=== PATIENT | female | born 1965 | race Caucasian/White ===

== ENCOUNTER 2021-03-02 15:24 | Emergency (ER) | payer OTHER, SELFPAY ==
--- NOTE | 2021-03-02 15:37 | ED.SKABFB ---
HPI - Skin/Abscess/Foreign Bdy General Chief complaint: Skin/Abscess/Foreign Body Stated complaint: tick bite Time Seen by Provider: 03/02/21 15:37 Source: patient and RN notes reviewed Mode of arrival: ambulatory Limitations: no limitations History of Present Illness HPI narrative: 55-year-old female presents with concern for tick bite. Reports 2 weeks ago she had a tick pulled off of her back. Reports a painful red area on her back since that time. Reports 5 other bumps on her body that are painful, reports one area on her shoulder became large and drained fluid recently. Reports fatigue, malaise. Reports she has been using Benadryl cream with no relief. She denies swollen tongue, swollen lips, fever. MD complaint: insect bite/sting Related Data Allergies Allergy/AdvReac Type Severity Reaction Status Date / Time diazepam Allergy Unknown Hives / Verified 03/02/21 15:48 Red Face morphine AdvReac Mild NAUSEA/VOMI Verified 03/02/21 15:48 TING NA Allergy Unknown Uncoded 03/02/21 15:48 NKA Allergy Unknown Uncoded 03/02/21 15:48 Review of Systems Review of Systems: Narrative: CONSTITUTIONAL: Reports malaise, fatigue. Denies chills, sweats, or fever. EYES: Denies visual changes, redness, or discharge. ENT: Denies rhinorrhea, congestion, sinus pain, otalgia or sore throat. CARDIOVASCULAR: Denies chest pain, palpitations, or edema. RESPIRATORY: Denies cough or dyspnea. GASTROINTESTINAL: Denies abdominal pain, nausea, vomiting, diarrhea SKIN: Reports tick bite on her back, reports 5 painful bumps scattered on her arms and torso MUSCULOSKELETAL: Denies back pain, joint pain, or myalgia. NEUROLOGIC: Denies numbness, weakness, or headache. PSYCHIATRIC: Denies anxiety or depression. All systems reviewed & are unremarkable except as noted in HPI and below PMFSH Social History Social History Gender identity (if verbalized by the patient): Female Comments At time of signature, agree with nursing past medical, surgical, social and family history. There is no relevant family history pertinent to the presenting complaint Exam Narrative: Exam Narrative: GENERAL: Well-appearing, well-nourished, and in no acute distress. HEAD: Normocephalic, atraumatic. EYES: PERRLA, conjunctivae clear ENT: Mucous membranes moist. Oropharynx without edema, erythema or lesions. NECK: Supple. No lymphadenopathy CHEST: Clear to auscultation. No respiratory distress. HEART: Regular rate and rhythm. SKIN: Warm, dry. 1cm area of raised erythema with central blister noted to the right upper back. 5 scattered papules with scabs, slightly erythematous noted scattered to the arms and torso NEURO: Alert and oriented x3. PSYCH: Normal mood and affect Course Course Emergency Course: Patient is aware of diagnosis, understands and agrees to treatment plan. Anticipatory guidance given. Patient agrees to follow-up as directed and is aware of reasons to seek care at the emergency department. Portions of this record may have been created with voice recognition software Vital Signs Vital signs: Vital Signs Temperature 98.4 F 03/02/21 15:39 Pulse Rate 72 03/02/21 15:39 Respiratory Rate 16 03/02/21 15:39 Blood Pressure 145/81 H 03/02/21 15:39 Pulse Oximetry 98 03/02/21 15:39 Temperature 98.4 F 03/02/21 15:39 Pulse Rate 72 03/02/21 15:39 Respiratory Rate 16 03/02/21 15:39 Blood Pressure 145/81 H 03/02/21 15:39 Pulse Oximetry 98 03/02/21 15:39 Reviewed. MDM - Skin/Abscess/Foreign Bdy MDM Narrative Medical decision making narrative: Does not appear at this time to be erythema multiforme, bullous, SJS, TEN; no evidence at this time to suggest RMSF, endocarditis or Lyme disease; patient looks well, nontoxic and is tolerating oral intake; no neurologic signs or symptoms; no headache, photophobia or neck pain; afebrile; appropriate for initial outpatient treatment; discussed the importance of follow-up, patient agrees; qu
[2021-03-02 15:39] VITALS: BP 145/81; PULSE 72; RESP 16; TEMP 36.9; O2SAT 98
== END 2021-03-02 16:08 | disposition home or self-care (01) ==
PROVIDERS: Emergency Provider Nurse Practitioner
DX: S20.461A Insect bite (nonvenomous) of right back wall of thorax, initial encounter (principal); W57.XXXA Bitten or stung by nonvenomous insect and other nonvenomous arthropods, initial encounter; Z85.3 Personal history of malignant neoplasm of breast; Z90.13 Acquired absence of bilateral breasts and nipples
CPT/HCPCS: 99213; G0463

== ENCOUNTER 2021-06-15 16:34 | Emergency (ER) | payer OTHER, SELFPAY ==
[2021-06-15 16:54] VITALS: BP 129/88; PULSE 91; RESP 18; TEMP 37.6; O2SAT 100
--- NOTE | 2021-06-15 17:08 | ED.ABDPAIN ---
HPI - Abdominal Pain General Chief Complaint: Abdominal Pain Stated Complaint: Right side Pain History of Present Illness HPI narrative: This is a 56-year-old female comes in complaining of right lower quadrant pain. Patient states that she has been having this pain for approximately 2 to 3 weeks pain is increasingly gotten severe she is vomited on Monday. Patient states that she has been having low-grade that she did not realize at first Related Data Home Medications Medication Instructions Recorded Confirmed No Home Medications 06/15/21 06/15/21 Allergies Allergy/AdvReac Type Severity Reaction Status Date / Time diazepam Allergy Unknown Hives / Verified 06/15/21 18:36 Red Face morphine AdvReac Mild NAUSEA/VOMI Verified 06/15/21 18:36 TING Review of Systems Review of Systems: CONSTITUTIONAL: Denies fever, chills, or sweats. EYES: Denies visual changes, redness, or discharge. ENT: Denies rhinorrhea, congestion, sore throat, or otalgia. CARDIOVASCULAR:denies chest pain, palpitations, or edema. RESPIRATORY: Denies cough or dyspnea. GASTROINTESTINAL: reports right sided abdominal pain, denies nausea, vomiting, or diarrhea. GENITOURINARY: Denies dysuria or hematuria. SKIN:[Denies rash or itching. MUSCULOSKELETAL:Denies back pain, joint pain, or myalgia. NEUROLOGIC: Denies headache, numbness, or weakness. PSYCHIATRIC:Denies anxiety or depression PMFSH Surgical History Surgical History (Updated 06/15/21 @ 19:33 by Caryn Quintana PA-C) History of hysterectomy History of mastectomy Social History Social History Gender identity (if verbalized by the patient): Female Comments At time as signature, I have reviewed and agree with nursing past medical, social, surgical and family history. Please see nursing chart for further information. There is no relevant family history pertinent to the presenting complaint. Exam Narrative: GENERAL:Well-appearing, well-nourished, and in no acute distress. HEAD:Normocephalic, atraumatic. EYES: PERRLA and EOMI. ENT: Nares clear, no rhinorrhea or epistaxis. Mucous membranes moist. NECK: Supple. CHEST: Clear to auscultation. No respiratory distress. HEART: Regular rate and rhythm. No murmur heard. Normal peripheral pulses. ABDOMEN: Soft, right sided tender, nondistended, no cv tenderness normal active bowel sounds. EXTREMITIES: Normal range of motion. No edema. SKIN: Warm, dry, no rash. NEURO: No focal deficits. Alert and oriented x3. Course Vital Signs Vital signs: Vital Signs Temperature 99.6 F 06/15/21 16:54 Pulse Rate 91 06/15/21 16:54 Respiratory Rate 18 06/15/21 16:54 Blood Pressure 129/88 06/15/21 16:54 Pulse Oximetry 100 06/15/21 16:54 Temperature 99.6 F 06/15/21 16:54 Pulse Rate 91 06/15/21 16:54 Respiratory Rate 18 06/15/21 16:54 Blood Pressure 129/88 06/15/21 16:54 Pulse Oximetry 100 06/15/21 16:54 Transfer Transfered to: [facility] Accepting physician: Dr. Simmons unable to do any further testing MDM - Abdominal Pain Lab Data Labs: Urine Glucose Negative Reference Range: Negative Urine Bilirubin Negative Reference Range: Negative Urine Ketone Negative Reference Range: Negative Urine Specific [place] 1.020 Reference Range:1.001-1.035 Urine Blood Negative Reference Range: Negative * * Urine pH 5.5 Reference Range: 5.0-9.0 Urine Protein Negative Reference Range: Negative Urine Urobilin
== END 2021-06-15 17:48 | disposition short-term general hospital (02) ==
LOC: EXPCOLL 16:37
PROVIDERS: Emergency Provider Nurse Practitioner Family
DX: R10.31 Right lower quadrant pain (principal); Z85.3 Personal history of malignant neoplasm of breast; Z90.13 Acquired absence of bilateral breasts and nipples
CPT/HCPCS: 81003; 99212; G0463

== ENCOUNTER 2021-06-15 18:04 | Emergency (ER) | payer OTHER, SELFPAY ==
[2021-06-15] VITALS (17 sets, daily range): BP systolic 132–157; BP diastolic 86–93; PULSE 68–78; RESP 16; O2SAT 95–100
--- NOTE | ~2021-06-15 | CT_ITS ---
EXAMINATION: CT abdomen pelvis w con DATE: 06/15/2021 20:30 INDICATION: Right lower quadrant abdominal pain. TECHNIQUE: Computed tomography (CT) of the abdomen and pelvis was performed with 100 mL Omnipaque 350 intravenous contrast. Automated exposure control and iterative reconstruction technique were employe d. The dose-length product was 238.73 mGy-cm. COMPARISON: CT abdomen and pelvis 07/12/2013 FINDINGS: The visualized portions of the lung bases are clear without pneumonia or pleural effusion. The heart size is normal. No pericardial effusion. There are bilateral breast implants. The liver, ga llbladder, spleen, pancreas, and adrenal glands are normal. There is cortical thinning of the kidneys . There are no dilated loops of bowel. The appendix is normal. There are no pathologically enlarged l ymph nodes. There is no free intraperitoneal fluid. There is mild lumbar spondylosis. IMPRESSION: 1. Mild atrophy of the kidneys. Reviewed, dictated and finalized at location A.
[2021-06-15 18:37] LABS: Basophils Percent Auto 0.5 % (0.2-1.2); Eosinophils Absolute Auto 0.2 K/mm3 (0-0.3); Eosinophils Percent Auto 2.2 % (0-4.4); Hematocrit 42.1 % (37.0-47.0); Immature Granulocyte Absolute 0.02 K/mm3 (0.00-0.031); Immature Granulocyte Percent A 0.2 % (0-0.5); Lymphocytes Absolute Auto 3.18 K/mm3 (0.9-3.2); Mean Corpuscular HGB Conc 33.3 g/dl (32-36); Mean Corpuscular Volume 87.2 fl (80-100); Monocytes Absolute Auto 0.7 K/mm3 (0.1-0.6); Monocytes Percent Auto 8.5 % (2.6-8.5); Neutrophils Absolute Auto 4.2 K/mm3 (1.3-6.7); Neutrophils Percent Auto 50.6 % (45.5-73.1); Platelet Count Result 340 k/mm3 (150-375); Red Blood Count 4.83 M/mm3 (4.2-5.4); Red Cell Distribution Width 13.2 % (11.5-14.5); White Blood Count 8.4 K/mm3 (4.5-10.0)
[2021-06-15 18:47] LABS: Alanine Aminotransferase 24 U/L (4-35); Albumin Level 4.3 g/dL (3.5-5.1); Alkaline Phosphatase 66 U/L (38-126); Anion Gap 10 mmol/L (8-16); Aspartate Amino Transferase 33 U/L (14-36); Bilirubin,Total 0.4 mg/dL (0.2-1.3); Blood Urea Nitrogen 24 mg/dL (7-17); Calcium 9.5 mg/dL (8.4-10.2); Carbon Dioxide 27 mmol/L (22-30); Chloride 101 mmol/L (98-107); Estimated CRCL calculation 39 ml/min; Estimated Glomerular Filt Rate 51; Glucose 81 mg/dL (65-110); Lipase 233 U/L (23-300); Potassium 3.9 mmol/L (3.4-5.0); Sodium 138 mmol/L (137-145)
--- NOTE | 2021-06-15 19:31 | ED.ABDPAIN ---
HPI - Abdominal Pain General Chief Complaint: Abdominal Pain <ANNALISA Bernstein Last Filed: 06/15/21 21:07> Stated Complaint: RLQ Abd pain <ANNALISA Bernstein Last Filed: 06/15/21 21:07> Time Seen by Provider: 06/15/21 18:44 <ANNALISA Bernstein Last Filed: 06/15/21 21:07> Source: patient <ANNALISA Bernstein Last Filed: 06/15/21 21:07> Mode of arrival: ambulatory <ANNALISA Bernstein Last Filed: 06/15/21 21:07> Limitations: no limitations <ANNALISA Bernstein Last Filed: 06/15/21 21:07> History of Present Illness HPI narrative: This is a 56 year old female that presents to the ER for RLQ abdominal pain x 2 weeks. Reports the pain was intermittent in nature. It is sharp. The pain today has been more constant which prompted her to be seen. Does report intermittent nausea and vomiting. Also reports episodes of diarrhea. Denies fever. <ANNALISA Bernstein Last Filed: 06/15/21 21:07> Related Data Home Medications: Home Medications Medication Instructions Recorded Confirmed No Home Medications 06/15/21 08 <ANNALISA Bernstein Last Filed: 06/15/21 21:07> Allergies/Adverse Reactions: Allergies Allergy/AdvReac Type Severity Reaction Status Date / Time diazepam Allergy Unknown Hives / Verified 06/15/21 18:36 Red Face morphine AdvReac Mild NAUSEA/VOMI Verified 06/15/21 18:36 TING <ANNALISA Bernstein Last Filed: 06/15/21 21:07> Review of Systems Review of Systems: CONSTITUTIONAL: Denies fever GASTROINTESTINAL: Reports abdominal pain, nausea, vomiting, and diarrhea. GENITOURINARY: Denies dysuria or hematuria. <ANNALISA Bernstein Last Filed: 06/15/21 21:07> All systems reviewed & are unremarkable except as noted in HPI and below <ANNALISA Bernstein Last Filed: 06/15/21 21:07> [facility] Surgical History Surgical History: Surgical History (Updated 06/15/21 @ 19:33 by Caryn Quintana PA-C) History of hysterectomy History of mastectomy <Caryn Quintana PA-C - Last Filed: 06/15/21 21:07> Social History Social History: Social History Gender identity (if verbalized by the patient): Female <Caryn Quintana PA-C - Last Filed: 06/15/21 21:07> Exam Narrative: GENERAL: Well-appearing, well-nourished, and in no acute distress. HEAD: Normocephalic, atraumatic. EYES: EOMI. CHEST: Clear to auscultation. No respiratory distress. No wheezes rales or rhonchi HEART: Regular rate and rhythm. No murmur heard. Normal peripheral pulses. ABDOMEN: Soft, nondistended, normal active bowel sounds. Tender to palpation in the right lower quadrant, without guarding. No CVA tenderness EXTREMITIES: Normal range of motion. No edema. SKIN: Warm, dry, no rash. NEURO: No focal deficits. Alert and oriented x3. PSYCH: Normal mood and affect <Caryn Quintana PA-C - Last Filed: 06/15/21 21:07> Course Vital Signs Vital signs: Vital Signs Pulse Rate 78 06/15/21 18:17 Respiratory Rate 16 06/15/21 18:17 Blood Pressure 157/89 H 06/15/21 18:17 Pulse Oximetry 100 06/15/21 18:17 Pulse Rate 71 06/15/21 21:23 Respiratory Rate 16 06/15/21 21:23 Blood Pressure 147/93 H 06/15/21 21:23 Pulse Oximetry 98 06/15/21 21:23 <Caryn Quintana PA-C - Last Filed: 06/15/21 21:07> Vital Signs Pulse Rate 78 06/15/21 18:17 Respiratory Rate 16 06/15/21 18:17 Blood Pressure 157/89 H 06/15/21 18:17 Pulse Oximetry 100 06/15/21 18:17 Pulse Rate 71 06/15/21 21:23 Respiratory Rate 16 06/15/21 21:23 Blood Pressure 147/93 H 06/15/21 21:23 Pulse Oximetry 98 06/15/21 21:23 <Halina Stringer BOTTLING ATTENDANT - Last Filed: 06/19/21 14:06> MDM - Abdominal Pain MDM Narrative Medical decision making narrative: Patient presents the emergency department for intermittent right lower quadrant abdominal pain noted over the last couple weeks. She is afebrile and nontoxic-
[2021-06-15 19:59] LABS: Add Urine Microscopic? NO; Appearance Urine Clear (Clear); Bilirubin Urine Negative (Negative); Blood Urine Negative (Negative); Color Urine Straw (Yellow); Glucose Urine UA Negative (Negative); Ketones Urine Negative (Negative); Leukocyte Esterase Ur Negative LEU/UL (Negative); Nitrate Urine Negative (Negative); Protein Urine Negative (Negative); Specific Grav Ur 1.009 (1.001-1.035); Urobilinogen Urine Negative mg/dL (<2.0)
== END 2021-06-15 21:26 | disposition home or self-care (01) ==
PROVIDERS: Emergency Medicine; Emergency Provider Emergency Medicine
DX: R10.9 Unspecified abdominal pain (principal)
CPT/HCPCS: 36415; 74177; 80053; 81003; 83690; 85025; 99284; Q9967

== ENCOUNTER 2022-03-22 18:21 | Emergency (ER) | payer OTHER, SELFPAY ==
[2022-03-22 18:31] VITALS: BP 117/84; PULSE 76; RESP 17; TEMP 37.1; O2SAT 100
--- NOTE | 2022-03-22 18:32 | ED.EYEPROB ---
HPI - Eye Problem General Chief complaint: Eye Problems Stated complaint: lt eye irritation Time Seen by Provider: 03/22/22 18:32 Source: patient Mode of arrival: ambulatory Limitations: no limitations History of Present Illness HPI Narrative: Terese Blanca is a 56 yo female who [facility] with swelling and painful left eye that started last night. Vision is undisturbed but has pain 6 out of 10 and has been using a warm washcloth to the eye Related Data Allergies Allergy/AdvReac Type Severity Reaction Status Date / Time diazepam Allergy Unknown Hives / Verified 03/22/22 18:38 Red Face morphine AdvReac Mild NAUSEA/VOMI Verified 03/22/22 18:38 TING Review of Systems Review of Systems: CONSTITUTIONAL: Denies fever, chills, sweats. EYES: Denies visual changes, redness, discharge. Left eye with lid swelling ENT: Denies rhinorrhea, congestion, sore throat, otalgia. CARDIOVASCULAR: Denies chest pain, palpitations, edema. RESPIRATORY: Denies dyspnea, wheezing, cough GASTROINTESTINAL: Denies abdominal pain, nausea, vomiting, diarrhea. GENITOURINARY: Denies dysuria, hematuria, abnormal discharge SKIN: Denies rash or itching. NEUROLOGIC: Denies numbness, or focal weakness. PSYCHIATRIC: Denies anxiety or depression. [facility] Past Medical History Medical History Breast CA Surgical History Surgical History History of mastectomy S/P breast reconstruction, bilateral S/P PATY-BSO (total abdominal hysterectomy and bilateral salpingo-oophorectomy) Family History Family History Mother Liver cancer Uterine cancer Thyroid disorder Other Acute myocardial infarction Social History Social History Social History: Smoking packs per day: 0 Smoking cigarettes per day: 0.0 Smoking status: Never smoker Second hand tobacco smoke exposure: No Alcohol intake: current Alcohol use details: Rarely Substance use: never Substance use type: does not use 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 There is no relevant family history pertinent to the presenting complaint. Exam Narrative: GENERAL: This is a well-nourished, well-developed patient, in mild distress. HEAD: normocephalic, atraumatic. EYES: PERRL. Sclera clear/white. Vision is grossly intact. No injection on left, eyelid is red and tender to exam EARS: External ears normal, Hearing grossly intact. NOSE: External nose normal without nasal discharge, nares without redness, no rhinorrhea. THROAT: Mucous membranes moist, NECK: Neck supple, CARDIOVASCULAR: Regular rate and rhythm without murmurs, gallops, or rubs. RESPIRATORY: Clear to auscultation. Breath sounds equal bilaterally. No wheezes, rales, or rhonchi. GASTROINTESTINAL: Abdomen soft, SKIN: warm, intact with no suspicious lesions or rash, good texture and turgor. NEURO: awake, alert, and oriented to person, place and time. There were no obvious focal neurologic abnormalities. Steady gait EXTREMITIES: Normal range of motion. BACK: Nontender without deformity Course Course Emergency Course: Patient tenderness to left eyelid started last night has some swelling I flushed even though there is no injection of sclera Started on tobramycin drops and continue with warm soaks Level of Care: Express Care Visit Vital Signs Vital signs: Vital Signs Temperature 98.7 F 03/22/22 18:31 Pulse Rate 76 03/22/22 18:31 Respir
== END 2022-03-22 19:08 | disposition home or self-care (01) ==
PROVIDERS: Emergency Provider Nurse Practitioner
DX: H01.004 Unspecified blepharitis left upper eyelid (principal); Z85.3 Personal history of malignant neoplasm of breast
CPT/HCPCS: 99213; A9270; G0463

== ENCOUNTER 2023-05-04 18:22 | Emergency (ER) | payer OTHER, SELFPAY ==
[2023-05-04 18:32] VITALS: BP 134/87; PULSE 76; RESP 18; TEMP 36.8; O2SAT 99
--- NOTE | 2023-05-04 18:48 | ED.SKABFB ---
HPI - Skin/Abscess/Foreign Bdy General Chief complaint: Skin/Abscess/Foreign Body Stated complaint: Insect Bite Lt Buttock Time Seen by Provider: 05/04/23 18:43 Source: patient and RN notes reviewed Mode of arrival: ambulatory Limitations: no limitations History of Present Illness HPI narrative: Patient presents today complaining of a possible spider bite to her left buttock has been present for 2 days. It has become more swollen and painful since onset. She did not witness a bite, but states [place] out in [place] lot [place]. She currently rates her pain 5/10 that is most present when she is sitting. She has been applying some antibiotic ointment without relief. Denies history of abscesses, boils. Related Data Allergies Allergy/AdvReac Type Severity Reaction Status Date / Time diazepam Allergy Unknown Hives / Verified 05/04/23 18:42 Red Face morphine AdvReac Mild NAUSEA/VOMI Verified 05/04/23 18:42 TING Review of Systems Review of Systems: CONSTITUTIONAL: Denies body aches, fever, chills, or sweats. EYES: Denies visual changes, redness, or discharge. ENT: Denies rhinorrhea, congestion, sore throat, or otalgia. CARDIOVASCULAR: Denies chest pain, palpitations, or edema. RESPIRATORY: Denies cough or dyspnea. GASTROINTESTINAL: Denies abdominal pain, nausea, vomiting, or diarrhea. GENITOURINARY: Denies dysuria or hematuria. SKIN: + insect bite to left buttock MUSCULOSKELETAL: Denies back pain, joint pain, or myalgia. NEUROLOGIC: Denies headache, numbness, tingling, or weakness. PSYCH: Denies depression or anxiety. [facility] Past Medical History Medical History Breast CA Surgical History Surgical History History of mastectomy S/P breast reconstruction, bilateral S/P PATY-BSO (total abdominal hysterectomy and bilateral salpingo-oophorectomy) Family History Family History Mother Liver cancer Uterine cancer Thyroid disorder Other Acute myocardial infarction Social History Social History Social History: Smoking packs per day: 0 Smoking cigarettes per day: 0.0 Smoking status: Never smoker Second hand tobacco smoke exposure: No Alcohol intake: current Alcohol use details: Rarely Substance use: never Substance use type: does not use Living arrangements: with family Occupation/Education: occupation 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 Please see nursing chart for further information. There is no relevant family history pertinent to the presenting complaint Exam Narrative: GENERAL: Well-appearing, well-nourished, and in no acute distress. HEAD: Normocephalic, atraumatic. EYES: EOMI. No redness or drainage. Conjunctivae normal. ENT: Mucous membranes pink and moist. NECK: Normal AROM. CHEST: No respiratory distress. EXTREMITIES: Normal range of motion. No edema. SKIN: Warm, dry, no rash. Capillary refill normal. Normal skin turgor. 1.5 cm round area of erythema and induration to the left upper buttock area that is tender to palpation. Small puncture wound in the center, consistent with insect bite. No fluctuance. No drainage. NEURO: No focal deficits. Alert and oriented x3. Gait steady. PSYCH: Normal affect. No signs of depression or anxiety. Course Course Level of Care: Express Care Visit Vital Signs Vital signs: Vital Si
== END 2023-05-04 18:55 | disposition home or self-care (01) ==
PROVIDERS: Emergency Provider Nurse Practitioner; PCP Family Medicine
DX: S30.860A Insect bite (nonvenomous) of lower back and pelvis, initial encounter (principal); L08.9 Local infection of the skin and subcutaneous tissue, unspecified; W57.XXXA Bitten or stung by nonvenomous insect and other nonvenomous arthropods, initial encounter; Z85.3 Personal history of malignant neoplasm of breast; Z90.13 Acquired absence of bilateral breasts and nipples
CPT/HCPCS: 99213; G0463

== ENCOUNTER → 2023-11-14 15:02 | Outpatient (CLI) | payer SELFPAY ==
--- NOTE | ~2023-11-14 | XR_ITS ---
EXAM: XR shoulder RT min 2V DATE: 11/14/2023 15:37 HISTORY: M25.511 - Pain in right shoulder . COMPARISON: None available. FINDINGS: Normal mineralization. No fracture or dislocation. No lytic or blastic lesion. Mild degene rative change at the AC joint and glenohumeral joint. No erosion or periosteal change. Hazy opacity i n the mid and lower right lung. IMPRESSION: No acute osseous finding in the right shoulder. Mild polyarticular osteoarthritis. Right lung opacity possibly related to summation artifact from overlying soft tissues, recommend PA a nd lateral radiographs of the chest for further evaluation. Reviewed, dictated and finalized at location K. CRANE OPERATOR IMPRESSION: No acute osseous finding in the right shoulder. Mild polyarticular osteoarthritis. Right lung opacity possibly related to summation artifact from overlying soft t issues, recommend PA and lateral radiographs of the chest for further evaluatio n.
== END ==
PROVIDERS: PCP Physician Assistant; Visit Provider Physician Assistant
DX: M19.011 Primary osteoarthritis, right shoulder (principal)
CPT/HCPCS: 73030

== ENCOUNTER → 2023-11-15 08:03 | Outpatient (CLI) | payer SELFPAY ==
--- NOTE | ~2023-11-15 | XR_ITS ---
Clinical Indication: Other nonspecific abnormal finding of lung field PA and lateral views of the chest: Comparison: 04/27/2011 Findings: The lungs are clear, without evidence of focal consolidation or pleural effusion. Cardiome diastinal silhouette is within normal limits. Bones and soft tissues are unremarkable. Impression: Normal chest. Reviewed, dictated and finalized at [facility]. ETING SERVICES SPECIALIST Impression: Normal chest.
== END ==
PROVIDERS: PCP Family Medicine; Visit Provider Family Medicine
DX: R91.8 Other nonspecific abnormal finding of lung field (principal)
CPT/HCPCS: 71046

== ENCOUNTER 2024-05-02 15:02 | Emergency (ER) | payer OTHER, SELFPAY | END 2024-05-02 20:41 | disposition left against medical advice (07) | LOC: ANHED 20:39 | PROVIDERS: PCP Family Medicine | DX: Z53.21 Procedure and treatment not carried out due to patient leaving prior to being seen by health care provider (principal) | CPT/HCPCS: 99199 ==

== ENCOUNTER 2024-05-02 15:06 | Emergency (ER) | payer OTHER, SELFPAY ==
[2024-05-02 15:15] VITALS: BP 129/90; PULSE 84; RESP 18; TEMP 36.5; O2SAT 100
--- NOTE | 2024-05-02 15:20 | ED.SKABFB ---
HPI - Skin/Abscess/Foreign Bdy General Chief complaint: Skin/Abscess/Foreign Body Stated complaint: spider bitte Time Seen by Provider: 05/02/24 15:21 Source: patient, RN notes reviewed and old records reviewed Mode of arrival: ambulatory Limitations: no limitations History of Present Illness HPI narrative: 59 year old female presents to the [facility] care with complaints of lesions to left leg and to her back which she believes are possibly spider bites for 5 days duration. Patient has small area to left lateral thigh with black scabbed center, has medial left thigh area lesion with black scabbed lesion with noted some yellow drainage and surrounding redness 7cm X7cm with warmth. Patient has lesion to mid lower back with scabbed center with no surrounding redness. Patient reports that she has been applying Benadryl ointment to sites. Patient reports no fevers, chills or sweats, MD complaint: abscess/boil Onset (ago): day(s) (5) Location: back and LLE Severity scale (1-10): 2 Quality: aching Treatments prior to arrival: other (Benadryl ointment) Related Data Allergies Allergy/AdvReac Type Severity Reaction Status Date / Time diazepam Allergy Unknown Hives / Verified 05/02/24 15:19 Red Face morphine AdvReac Mild NAUSEA/VOMI Verified 05/02/24 15:19 TING Review of Systems Review of Systems: CONSTITUTIONAL: Denies fever, chills, or sweats. CARDIOVASCULAR: Denies chest pain, palpitations, or edema. RESPIRATORY: Denies cough or dyspnea. GASTROINTESTINAL: Denies abdominal pain, nausea, vomiting SKIN: Reports redness and swelling. with some purulent drainage from site on left medial leg with warmth to wound, lesion to lateral thigh with scabbed center no surrounding redness and also to mid lower back with no redness or drainage. no sharp pain. no fevers. MUSCULOSKELETAL: Denies myalgia. NEUROLOGIC: Denies headache, numbness All systems reviewed & are unremarkable except as noted in HPI and below PMFSH Past Medical History Medical History Breast CA Surgical History Surgical History History of mastectomy S/P breast reconstruction, bilateral S/P PATY-BSO (total abdominal hysterectomy and bilateral salpingo-oophorectomy) Family History Family History Mother Liver cancer Uterine cancer Thyroid disorder Other Acute myocardial infarction Social History Social History Social History: Smoking packs per day: 0 Smoking cigarettes per day: 0.0 Smoking status: Never smoker Second hand tobacco smoke exposure: No Alcohol intake: current Alcohol use details: Rarely Substance use: never Substance use type: does not use Living arrangements: with family Occupation/Education: occupation 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 There is no relevant family history pertinent to the presenting complaint Exam Narrative: GENERAL: Well-appearing, well-nourished, and in no acute distress. HEAD: Normocephalic, atraumatic. EYES: PERRLA and EOMI. ENT: Nares clear, no rhinorrhea or epistaxis. Mucous membranes moist. NECK: Supple. no lymphadenopathy CHEST: Clear to auscultation. No respiratory distress. SAO2 100% on room air HEART: Regular rate and rhythm. No murmur heard. Normal peripheral pulses. ABDOMEN: Soft, nontender, nondistended, normal active bowel sounds. EXTREMITIES: Normal range of motion. No edema. SKIN: Warm, dry. Erythema, induration, tendernes
== END 2024-05-02 15:38 | disposition home or self-care (01) ==
PROVIDERS: Emergency Provider Registered Nurse; PCP Family Medicine
DX: L02.416 Cutaneous abscess of left lower limb (principal); Z85.3 Personal history of malignant neoplasm of breast; Z90.13 Acquired absence of bilateral breasts and nipples
CPT/HCPCS: 99213; G0463

== ENCOUNTER 2024-12-04 13:43 | Emergency (ER) | payer OTHER, SELFPAY ==
[2024-12-04 13:52] VITALS: BP 138/74; PULSE 81; RESP 18; TEMP 36.8; O2SAT 100
[2024-12-04 14:03] LABS: EDUAAPPEAR Clear; EDUABILI Negative (Negative); EDUABLOOD Negative (Negative); EDUACOLOR1 Yellow; EDUAGLUCOSE Negative (Negative); EDUAKETONE Negative (Negative); EDUALEUKO Negative (Negative); EDUANITRATE Negative (Negative); EDUAPH 5.5; EDUAPROTEIN Negative (Negative); EDUAUROBILI 0.2
--- NOTE | 2024-12-04 14:05 | ED_ITS ---
HPI - Back Pain/Injury General Chief Complaint: Urogenital-Female Stated Complaint: back pain Time Seen by Provider: 12/04/24 14:05 Source: patient Mode of arrival: ambulatory Limitations: no limitations History of Present Illness HPI Narrative: 59 yo F presents with c/o low back pain for the past 3 wks, getting progressively worse. 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 No injury. Taking ibuprofen without relief of pain. Is pretty sure back pain is muscular but has had daker urine today so would like urine check. No dysuria, frequency. Afebrile. Ambulatory with steady gait. No loss of bowel or bladder. no radiation of pain. All systems reviewed and negative except as noted above. Related Data Allergies Allergy/AdvReac Type Severity Reaction Status Date / Time diazepam Allergy Unknown Hives / Verified 12/04/24 13:56 Red Face morphine AdvReac Mild NAUSEA/VOMI Verified 12/04/24 13:56 TING Review of Systems Review of Systems: CONSTITUTIONAL: Denies fever, chills, or sweats. EYES: Denies visual changes, redness, or discharge. ENT: Denies rhinorrhea, congestion, sore throat, or otalgia. CARDIOVASCULAR: Denies chest pain, palpitations, or edema. RESPIRATORY: Denies cough or dyspnea. GASTROINTESTINAL: Denies abdominal pain, nausea, vomiting, or diarrhea. GENITOURINARY: Denies dysuria or hematuria. SKIN: Denies rash or itching. MUSCULOSKELETAL: Reports low back pain. Denies joint pain, or myalgia. NEUROLOGIC: Denies headache, numbness, or weakness. PSYCHIATRIC: Denies anxiety or depression. All other systems reviewed are negative, except as documented in HPI. [facility] Past Medical History Medical History Breast CA Surgical History Surgical History History of mastectomy S/P breast reconstruction, bilateral S/P PATY-BSO (total abdominal hysterectomy and bilateral salpingo-oophorectomy) Family History Family History Mother Liver cancer Uterine cancer Thyroid disorder Other Acute myocardial infarction Social History Social History (Reviewed 05/02/24 @ 16:06 by BLANKA Castañeda Social History: Smoking packs per day: 0 Smoking cigarettes per day: 0.0 Smoking status: Never smoker Second hand tobacco smoke exposure: No Alcohol intake: current Alcohol use details: Rarely Substance use: never Substance use type: does not use Living arrangements: with family Occupation/Education: occupation 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 There is no relevant family history pertinent to the presenting complaint. Exam Narrative: GENERAL: This is a well-nourished, well-developed patient, in no apparent distress. HEAD: normocephalic, atraumatic. EYES: PERRL. Sclera clear/white. Vision is grossly intact. EARS: External ears normal NOSE: External nose normal NECK: Neck supple, non-tender without lymphadenopathy, masses or thyromegaly. CARDIOVASCULAR: Regular rate and rhythm without murmurs, gallops, or rubs. RESPIRATORY: Clear to auscultation. Breath sounds equal bilaterally. No wheezes, rales, or rhonchi. SKIN: warm, Dry, intact with no suspicious lesions or rash, good texture and turgor. NEURO: awake, alert, and oriented to person, place and time. There were no obvious focal neurologic abnormalities. EXTREMITIES: No joint tenderness, effusion, or edema noted. BACK: no midline tenderness. bilateral low back muscular tenderness and spasm. LE strength 5/5 bilaterally. Course Course Level of Care: Express Care Visit Vital Signs Vital signs: Vital Signs Temperature 36.8 C 12/04/24 13:52 Pulse Rate 81 12/04/24 13:52 Respiratory Rate 18 12/04/24 13:52 Blood Pressure 138/74 12/04/24 13:52 Pulse Oximetry 100 12/04/24 13:52 Oxygen Delivery Room Air 12/04/24 13:52 Temperature 36.8 C 12/04/24 13:52 Pulse Rate 81 12/04/24 13:52 Respiratory Rate 18 12/04/24 13:52 Blood Pressure 138/74 12/04/24 13:52 Pulse Oximetry 100 12/04/24 13:52 Oxygen Delivery Room Air 12/04/24 13:52 reviewed MDM - Back Pain/Injury MDM Narrative Medical decision making narrative: patient given IM Toradol prior to discharge. Will treat low back strain with muscle relaxers, prednisone. Recommend she continue ibuprofen and Tylenol. Patient ambulatory with steady gait, no neuro deficits. Patient is aware of diagnosis, understands and agrees to treatment plan. Anticipatory guidance given. Patient agrees to follow-up as directed and is aware of reasons to seek care at the emergency department. Portions of this record may have been created with voice recognition software Differential Diagnosis Differential diagnosis: Likely lumbar radiculopathy, sciatica and strain of lumbar region Lab Data Labs: Lab Results 12/04/24 Range/Units 14:00 POC Urine Color Yellow POC Urine Clarity Clear POC Urine pH 5.5 POC Ur Specif [place] 1.020 POC Urine Protein Negative (Negative) POC Ur Glucose (UA) Negative (Negative) POC Urine Ketones Negative (Negative) POC Urine Blood Negative (Negative) POC Urine Nitrite Negative (Negative) POC Urine Bilirubin Negative (Negative) POC Urine Urobilinogen 0.2 POC U Leukocyte Esteras Negative (Negative) Discharge Plan Discharge Clinical Impression: Strain of muscle, fascia and tendon of lower back, initial encounter Patient Disposition: Home, Self-Care Condition: Stable Instructions: Low Back Strain (ED) Additional Instructions: Take medications as prescribed. Do not drive while taking methocarbamol. This medication is a muscle relaxant may cause drowsiness. Alternate between ibuprofen and Tylenol every 4 hours to treat pain. Alternate between ice and heat. Do light stretching exercises as tolerated. Follow-up with your primary care physician if pain is not improving. Patient Language: Norwegian Prescriptions: New methocarbamol 500 mg tablet 500 mg PO Q6H PRN (Reason: muscle pain/spasm) Qty: 30 0RF prednisone 20 mg tablet See Rx Instructions .ROUTE .COMPLEX Qty: 12 0RF Rx Instructions: Take 3 tablets today, then 2 tablets daily for 3 days then 1 tablet daily for 3 days. Follow-up/Referrals: Romero,Malgorzata Valentine MD [Primary Care Provider] - Time of Disposition: 14:13
[2024-12-04] MEDS: KETOROLAC (*BKC) 60 MG/2 ML VIAL IM (14:13)
--- OUTSIDE RECORDS SUMMARY | 2024-12-06 01:26 | XMS_ITS | Encounter Summary ---
Author Organization [facility] Health Address [address] [place] [address] Care Team Providers Care Second Watch Sergeant Name Role Phone Unavailable Primary Care Provider Unavailabl e Encounter Details Date Type Department Care Team (Late st Contact Info) Description 05/22/2024 Lab Requisition [facility] - DermPath Lab [address] [place] [address] Joslyn Sloan, [facility] [address] [place] [address] Social History Tobacco Use Types Packs/Day Years Used Date Smoking Tobacco: Never Assessed Sex and Gender Information Value Date Recorded Sex Assigned at Not on file Gender Identity Not on file Sexual Orientation Not on file documented as of this encounter Plan of Treatment Not on file documented as of this encounter Procedures Procedure Name Priority Date/Time Associated Diagnosis Comments DERMATOPATHOLOGY Routine 05/22/2024 9:16 AM CDT documented in this encounter Results * DERMATOPATHOLOGY (05/22/2024 9:16 AM CDT) Case Report Dermatopathology Report ? Case: [id number] ? Authorizing Provider: ??Joslyn Sloan, ? Collected: ? 05/22/2024 09:16 AM ? MACHINE FIXER-SENIOR ACCOUNT CLERK ? Ordering Location: ? [facility] - ??Received: ?05/23/2024 11:05 AM ? DermPath Lab ? Pathologist: ? Frannie Gonzalez MD ? Specimens: ?? A) - Skin, right med breast ? B) - Skin, right breast ? 4 1:20 PM CDT DERMATOPATHOLOGY LABORATORY Final Diagnosis Specimen A. SKIN, right med breast: BASAL CELL CARCINOMA, NODULAR TYPE (C44.511) Specimen B. 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 The specimen consists of a shave biopsy measuring 7x6x2 mm. Jar 0. Specimen B: Received is one formalin filled container labeled with the patient's name and designated right breast. The specimen consists of a shave biopsy measuring 6x6x2 mm. Jar 0. 1:20 PM CDT DERMATOPATHOLOGY LABORATORY Microscopic Description Specimen A. SKIN, right med breast: Within the dermis there are aggregates of basaloid cells with a high nuclear to cytoplasmic ratio and peripheral palisading. Specimen B. SKIN, right breast: The epidermis shows parakeratosis, full thickness disorderly maturation of keratinocytes, mitoses at different levels, and dyskeratotic cells. 1:20 PM CDT DERMATOPATHOLOGY LABORATORY Disclaimer An external and internal positive and negative controls are appropriate for the histochemical, immunohistochemical and immunofluorescence stain(s) in this case (if any), except where stated explicitly. The performance characteristics of the stain(s) cited in this report were developed and its performance characteristic determined by the Dermatopathology Laboratory at [facility], directed by Dr. Karely Carbajal. These tests need not be, and therefore are not, approved by the [place] Food and Drug Administration. The tests are used for clinical purposes. Billing Codes Specimen Charges Stain Charges 89206 [id number] 1 1 1:20 PM CDT DERMATOPATHOLOGY LABORATORY Embedded Images 1:20 PM CDT DERMATOPATHOLOGY LABORATORY Pathology/Cytology TISSUE SPECIMEN FROM SKIN / Unknown 05/22/2024 9:16 AM CDT 05/23/2024 11:05 AM CDT Miscellaneous samples (specimen) TISSUE SPECIMEN FROM SKIN / Unknown 05/22/2024 9:16 AM CDT 05/23/2024 11:05 AM CDT Joslyn Hilarioalejandra MACHINE FIXER-SENIOR ACCOUNT CLERK LAB - PATH OLOGY/CYTOLOGY ORDERABLES DERMATOPATHOLOGY LABORATORY [facility] - Department of Dermatology [facility] [address] [place] [address], [address] [phone] documented in this encounter Visit Diagnoses Not on filedocumented in this encounter
--- OUTSIDE RECORDS SUMMARY | 2024-12-06 01:26 | XMS_ITS | Patient Health Summary ---
Author Organization [facility] [place] Address [address] [place] [address] Care Team Providers Care Cash Processor Name Role Phone Unavailable Primary Care Provider Unavailabl e Note from [facility] [place],non-owned Affiliates and Associated Physician Practices is amultiple site organization consisting of ambulatory clinics and hospital sitesin [place], [place], [place] and [place]. This disclosure is being madepursuant to the Care Everywhere program and may not contain all information available regarding this patient. 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 Case Report Dermatopathology Report ? Case: [id number] ? Authorizing Provider: ??Joslyn Sloan, ? Collected: ? 05/22/2024 09:16 AM ? STOCK CONTROL SUPERVISOR-TITLE I PARAPROFESSIONAL ? Ordering Location: ? [facility] - ??Received: ?05/23/2024 11:05 AM ? DermPath Lab ? Pathologist: ? Frannie Gonzalez MD ? Specimens: ?? A) - Skin, right med breast ? B) - Skin, right breast ? 1:20 PM T DERMATOPATHOLOGY LABORATORY Final Diagnosis Specimen A. SKIN, [...] different levels, and dyskeratotic cells. 1:20 PM T DERMATOPATHOLOGY LABORATORY Disclaimer An external and internal positive and negative controls are appropriate for the histochemical, immunohistochemical and immunofluorescence stain(s) in this case (if any), except where stated explicitly. The performance characteristics of the stain(s) cited in this report were developed and its performance characteristic determined by the Dermatopathology Laboratory at [facility], directed by Dr. Karely Carbajal. These tests need not be, and therefore are not, approved by the [place] Food and Drug Administration. The tests are used for clinical purposes. Billing Codes Specimen Charges Stain Charges 95598 18745 1 1 4 1:20 PM CDT DERMATOPATHOLOGY LABORATORY Embedded Images 4 1:20 PM CDT DERMATOPATHOLOGY LABORATORY Pathology/Cytology TISSUE SPECIMEN FROM SKIN / Unknown 05/22/2024 9:16 AM CDT 05/23/2024 11:05 AM CDT Miscellaneous samples (specimen) TISSUE SPECIMEN FROM SKIN / Unknown 05/22/2024 9:16 AM CDT 05/23/2024 11:05 AM CDT Joslyn Sloan STOCK CONTROL SUPERVISOR-TITLE I PARAPROFESSIONAL LAB - PATH OLOGY/CYTOLOGY ORDERABLES DERMATOPATHOLOGY LABORATORY [facility] - Department of Dermatology [address], [address] [phone] * MRI BREAST BILAT WWO CONTRAST (01/20/2017 12:55 PM PIPE CLEANING MACHINE OPERATOR) Anatomical Region Laterality Modality Breast Bilateral Other Impressions 01/23/2017 10:33 AM CDT IMPRESSION: Right breast: Regional area of non-mass enhancement measuring 7.1 x 2.4 x 6.9 cm, involving the right breast upper outer and lower outer quadrants corresponding to the pleomorphic calcification seen on the mammogram, consistent with patient's biopsy-proven ductal carcinoma in situ. Given the extent of malignancy, and invasive component is not excluded. Enlarged right axillary lymph node measuring 1.7 x 1.1 cm concerning for kaitlyn metastasis. Left breast: No evidence of malignancy in the left breast. ASSESSMENT: BI-RADS category 6: Known malignancy, appropriate action is being taken. RECOMMENDATION: Appropriate surgical management is recommended. Report dictated by Citlaly Murray M.D. (Resident). I, Dr. DWIGHT HOLMAN M.D. have personally reviewed and interpreted this examination/study. This report was electronically signed by DWIGHT HOLMAN M.D. ??on 01/23/2017 10:33 AM . 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 COMPARISON: Comparison was made to previous mammogram and right breast ultrasound from [facility] dated 12/27/2016. No post biopsy mammograms are available for review. TECHNIQUE: Multiplanar multisequence MR imaging of both breasts before and following the uneventful administration of 6.5 mL Gadavist intravenous gadolinium contrast. Dynamic phase imaging was performed in the axial plane. Exam was processed by and interpreted on a [employer] ice cream server including 3-D volume rendering, subtraction image processing and contrast kinetic analysis. FINDINGS: Background tissue pattern: There are scattered areas of fibroglandular density. Degree of background parenchymal enhancement: Minimal. Bilateral subpectoral saline implants are intact. RIGHT BREAST: There is a regional area of non-mass enhancement measuring 7.1 cm AP by 3.4 cm TV (image 103 series 14) by 6.9 cm CC (image 5 series 7), involving the right breast upper outer and lower outer quadrants corresponding to the fine pleomorphic calcifications seen on the mammogram, consistent with patient's biopsy-proven ductal carcinoma in situ. The non-mass enhancement extends up to the right nipple anteriorly and drapes around the right breast saline implant posteriorly. What likely represents susceptibility artifact from 2 biopsy markers are present within this region of enhancement with associated small hematomas. A 7 x 5 mm T2 hyperintense mildly enhancing mass in the right upper central breast (image 86 series 6) with suggestion of internal septations likely represents a fibroadenoma. A 1.7 x 1.1 cm right axillary lymph node (image 47 series 14) is enlarged. There is no abnormality of the right chest wall. LEFT BREAST: There is no suspicious mass or area of abnormal enhancement in the left breast. Tiny cysts are seen in the left breast which correspond to the cyst seen on the outside hospital ultrasound. There is no abnormality of the left axilla, chest wall, or nipple areolar complex. EXTRAMAMMARY FINDINGS: A 5 mm sebaceous cyst is seen in the anterior chest wall (image 45 series 2). Otherwise the inframammary tissues are unremarkable. Procedure Note Shira Holman MD - 02/09/2018 EXAMINATION: BILATERAL BREAST MRI HISTORY: 51-year-old female with recently diagnosed ductal carcinoma insitu of the right breast. COMPARISON: Comparison was made to previous mammogram and right breastultrasound from [facility] dated 12/27/2016. No post biopsymammograms are available for review. TECHNIQUE: Multiplanar multisequence MR imaging of both breasts before andfollowing the uneventful administration of 6.5 mL Gadavist intravenousgadolinium contrast. Dynamic phase imaging was performed in the axialplane. Exam was processed by and interpreted on a [employer] ice cream server including 3-D volume rendering,subtraction image processing and contrast kinetic analysis. FINDINGS: Background tissue pattern: There are scattered areas of fibroglandulardensity. Degree of background parenchymal enhancement: Minimal. Bilateral subpectoral saline implants are intact. RIGHT BREAST: There is a regional area of non-mass enhancement measuring 7.1 cm AP by3.4 cm TV (image 103 series 14) by 6.9 cm CC (image 5 series 7), involvingthe right breast upper outer and lower outer quadrants corresponding tothe fine pleomorphic calcifications seen on the mammogram, consistent with patient's biopsy-proven ductalcarcinoma in situ. The non-mass enhancement extends up to the right nippleanteriorly and drapes around the right breast saline implant posteriorly.What likely represents susceptibility artifact from 2 biopsy markers are present within thisregion of enhancement with associated small hematomas. A 7 x 5 mm T2 hyperintense mildly enhancing mass in the right uppercentral breast (image 86 series 6) with suggestion of internal septationslikely represents a fibroadenoma. A 1.7 x 1.1 cm right axillary lymph node (image 47 series 14) is enlarged.There is no abnormality of the right chest wall. LEFT BREAST: There is no suspicious mass or area of abnormal enhancement in the leftbreast. Tiny cysts are seen in the left breast which correspond to thecyst seen on the outside hospital ultrasound. There is no abnormality ofthe left axilla, chest wall, or nipple areolar complex. EXTRAMAMMARY FINDINGS: A 5 mm sebaceous cyst is seen in the anterior chest wall (image 45 series2). Otherwise the inframammary tissues are unremarkable. IMPRESSION IMPRESSION: Right breast: Regional area of non-mass enhancement measuring 7.1 x 2.4 x6.9 cm, involving the right breast upper outer and lower outer quadrantscorresponding to the pleomorphic calcification seen on the mammogram,consistent with patient's biopsy-proven ductal carcinoma in situ. Given the extent of malignancy,and invasive component is not excluded. Enlarged right axillary lymph node measuring 1.7 x 1.1 cm concerning fornodal metastasis. Left breast: No evidence of malignancy in the left breast. ASSESSMENT: BI-RADS category 6: Known malignancy, appropriate action isbeing taken. RECOMMENDATION: Appropriate surgical management is recommended. Report dictated by Citlaly Murray M.D. (Resident). I, Dr. DWIGHT HOLMAN M.D. have personally reviewed and interpreted thisexamination/study. This report was electronically signed by DWIGHT HOLMAN M.D. on01/23/2017 10:33 AM . Historical Provider MR ORDERABLES * (ABNORMAL) CREATININE BLOOD - POCT (IP) [facility] (01/20/2017) Creatinine POCT 1.04 0.3 - 1.3 mg/dL [facility] eGFR POCT 59(A) 60 ml/min [facility] 01/20/2017 Shira Holman MD LAB - POINT OF CA RE ORDERABLES [facility]
--- OUTSIDE RECORDS SUMMARY | 2024-12-06 01:26 | XMS_ITS | Referral Summary ---
Author Organization [facility] Address [address] [place] [address] Care Team Providers Care Clock And Watch Hands Painter Name Role Phone Unavailable Primary Care Provider Unavailabl e Source Comments [facility],non-owned Affiliates and Associated Physician Practices is amultiple site organization consisting of ambulatory clinics and hospital sitesin [place], [place], [place] and [place]. This disclosure is being madepursuant to the Care Everywhere program and may not contain all information available regarding this patient. Last updated 18.[facility] [place] Social History Tobacco Use Types Packs/Day Years [...] 59 kg (130 lb) 01/20/2017 12:51 PM CHANCERY CLERK Height 157.5 cm (5' 2 ) 01/20/2017 12:51 PM CHANCERY CLERK Body Mass Index 23.78 01/20/2017 12:51 PM CHANCERY CLERK Plan of Treatment Not on file
--- OUTSIDE RECORDS SUMMARY | 2024-12-06 01:26 | XMS_ITS | Clinical Summary ---
Author Organization [facility] [place] Address [address] [place] [address] Care Team Providers Care Bicycle Assembler Name Role Phone Unavailable Primary Care Provider Unavailabl e Source Comments [facility],non-owned Affiliates and Associated Physician Practices is amultiple site organization consisting of ambulatory clinics and hospital sitesin [place], [place], [place] and [place]. This disclosure is being madepursuant to the Care Everywhere program and may not contain all information available regarding this patient. Last updated 18.[facility] [place] Social History Tobacco Use Types Packs/Day Years [...] 59 kg (130 lb) 01/20/2017 12:51 PM JEWELRY ENGRAVER Height 157.5 cm (5' 2 ) 01/20/2017 12:51 PM JEWELRY ENGRAVER Body Mass Index 23.78 01/20/2017 12:51 PM JEWELRY ENGRAVER Plan of Treatment Health Maintenance Due Date Last Done Comments COLOGUARD (AGES 45-75) - COL ON CA SCREENING 1963 COLON MONITORING 1963 COLONOSCOPY - COLON CA SCREENING 1963 CT COLONOGRAPHY - COLON CA SCREENING 1963 Colorectal Cancer Screening 1963 FIT - COLON CA SCREENING 1963 FLEX SIG - COLON CA SCREENING 1963 LIPID TESTING 1963 MAMMOGRAM 1963 PAP SMEAR 1963 HIV SCREENING 1978 HEPATITIS C SCREENING 04/12/1981 DTAP/TDAP/TD VACCINES (1 - Tdap) 1982 PNEUMOCOCCAL VACCINE 50+ (1 of 1 - PCV) 2013 ZOSTER VACCINE (1 of 2) 2013 COVID-19 VACCINE (1 - 2023-2 5 season) 2024 INFLUENZA VACCINE (#1) 2024 DEPRESSION SCREENING 11/13/2024 Respiratory Syncytial Virus (RSV) Vaccine Pt: or over 60 yrs (1 - 1-dose 75+ series) 2038 HEPATITIS B VACCINE Aged Out No longe r eligible based on patient's age to complete this topic HIB VACCINE Aged Out No longer eligi ble based on patient's age to complete this topic HPV VACCINE Aged Out No longer eligi ble based on patient's age to complete this topic MENINGOCOCCAL (Group B) VACCINE Aged Out No longer eligible based on patient's age to complete this topic MENINGOCOCCAL VACCINE Aged Out No destini gio eligible based on patient's age to complete this topic PNEUMOCOCCAL VACCINE Aged Out No long er eligible based on patient's age to complete this topic
--- OUTSIDE RECORDS SUMMARY | 2024-12-06 01:27 | XMS_ITS | Encounter Summary ---
Author Organization [facility] Address [address] [place] [address] Care Team Providers Care Pipe Washer Name Role Phone Unavailable Primary Care Provider Unavailabl e Encounter Details Date Type Department Care Team (Late st Contact Info) Description 01/29/2019 Lab Requisition [facility] Care DermPath Lab [address] [place] [address] Shana Downs DO [address] [place] [address] Social History Tobacco Use Types Packs/Day Years Used Date Smoking Tobacco: Never Assessed Sex and Gender Information Value Date Recorded Sex Assigned at Not on file Gender Identity Not on file Sexual Orientation Not on file documented as of this encounter Plan of Treatment Not on file documented as of this encounter Procedures Procedure Name Priority Date/Time Associated Diagnosis Comments DERMATOPATHOLOGY Routine 01/28/2019 12:0 0 AM CDT documented in this encounter Results * DERMATOPATHOLOGY (01/28/2019 12:00 AM CDT) Case Report Dermatopathology Report ? Case: [id number] ? Authorizing Provider: ??Shana Downs DO ? Collected: ? 01/28/2019 12:00 AM ? Pathologist: ? Lilly Carbajal MD ? Received: ?01/29/2019 06:19 AM ? Specimen: ?Skin, upper mid abdomen ? 12:05 PM T DERMATOPATHOLOGY LABORATORY Final Diagnosis Specimen A. SKIN, upper mid abdomen: EPIDERMOID CYST (L72.0) 12:05 PM T DERMATOPATHOLOGY LABORATORY Clinical History Sucut nodule - hx breast CA. Cyst R/O Met. 12:05 PM T DERMATOPATHOLOGY LABORATORY Gross Description Specimen A: Received is one formalin filled container labeled with the patient's name and designated upper mid abdomen. The specimen consists of a punch (2 pieces) measuring [id number], bisected, & 78m6j0ig, bisected. Jar 0+. 12:05 PM [facility] DERMATOPATHOLOGY LABORATORY Microscopic Description Specimen A. SKIN, upper mid abdomen: Within the dermis, there is a space lined by epithelium that resembles normal epidermis and the infundibular portion of the hair follicle. 12:05 PM [facility] DERMATOPATHOLOGY LABORATORY Disclaimer An external and internal positive and negative controls are appropriate for the histochemical, immunohistochemical and immunofluorescence stain(s) in this case (if any), except where stated explicitly. The performance characteristics of the stain(s) cited in this report were developed and its performance characteristic determined by the Dermatopathology Laboratory at [facility], directed by Dr. Karely Carbajal. These tests need not be, and therefore are not, approved by the [place] Food and Drug Administration. The tests are used for clinical purposes. Billing Codes Specimen Charges Stain Charges 80477 1 12:05 PM CDT DERMATOPATHOLOGY LABORATORY Embedded Images 12:05 PM T DERMATOPATHOLOGY LABORATORY Pathology/Cytolog y TISSUE SPECIMEN FROM SKIN / Unknown 01/28/2019 01/29/2019 6:19 AM CDT Shana Downs DO LAB - PATHOLOGY/C YTOLOGY ORDERABLES DERMATOPATHOLOGY LABORATORY [facility] - Department of Dermatology [address] [place] [address], 5th Floor Lab B [address] [phone] documented in this encounter Visit Diagnoses Not on filedocumented in this encounter
--- OUTSIDE RECORDS SUMMARY | 2024-12-06 01:27 | XMS_ITS | Encounter Summary ---
Author Organization [facility] Address [address] [place] [address] Care Team Providers Care Production Manufacturing Worker Name Role Phone Unavailable Primary Care Provider Unavailabl e Encounter Details Date Type Department Care Team (Late st Contact Info) Description 01/18/2019 Lab Requisition [facility] Care DermPath Lab [address] [place] [address] Shana Downs DO [address] [facility] [address] [place] [address] Social History Tobacco Use Types Packs/Day Years Used Date Smoking Tobacco: Never Assessed Sex and Gender Information Value Date Recorded Sex Assigned at Not on file Gender Identity Not on file Sexual Orientation Not on file documented as of this encounter Plan of Treatment Not on file documented as of this encounter Procedures Procedure Name Priority Date/Time Associated Diagnosis Comments DERMATOPATHOLOGY Routine 01/16/2019 12:0 0 AM EMG TECHNICIAN documented in this encounter Results * DERMATOPATHOLOGY (01/16/2019 12:00 AM EMG TECHNICIAN) Case Report Dermatopathology Report ? Case: [id number] ? Authorizing Provider: ??Shana Downs DO ? Collected: ? 01/16/2019 12:00 AM ? Pathologist: ? Aaliyah Kenny MD ?Received: ?01/18/2019 06:51 AM ? Specimens: ?? A) - Skin, right upper arm ? B) - Skin, right thigh ? 1:11 PM T DERMATOPATHOLOGY LABORATORY Final Diagnosis Specimen A. SKIN, right upper arm: SEBORRHEIC KERATOSIS, MACULAR (L82.1) Specimen B. SKIN, right thigh: DERMATOFIBROMA (D23.9) 1:11 PM [facility] DERMATOPATHOLOGY LABORATORY Clinical History A: R/O ISK R/O NMSC irregular color B: R/O DF R/O atypia irregular color 1:11 PM [facility] DERMATOPATHOLOGY LABORATORY Gross Description Specimen A: Received is one formalin filled container labeled with the patient's name and designated right upper arm. The specimen consists of a shave biopsy measuring 6x6x1 mm. Jar 0. Specimen B: Received is one formalin filled container labeled with the patient's name and designated right thigh. The specimen consists of a shave biopsy measuring 8x7x1 mm. Jar 0. 1:11 PM T DERMATOPATHOLOGY LABORATORY Microscopic Description Specimen A. SKIN, right upper arm: Sections show a relatively broad, flat proliferation of small keratinocytes. The surface is gently papillated, and there is increased basilar pigmentation. Specimen B. SKIN, right thigh: There is epidermal hyperplasia. Within the dermis, there are fibrohistiocytic cells in haphazard array among coarse collagen bundles. 03/11/201 9 1:11 PM CDT DERMATOPATHOLOGY LABORATORY Disclaimer An external and internal positive and negative controls are appropriate for the histochemical, immunohistochemical and immunofluorescence stain(s) in this case (if any), except where stated explicitly. The performance characteristics of the stain(s) cited in this report were developed and its performance characteristic determined by the Dermatopathology Laboratory at [facility], directed by Dr. Karely Carbajal. These tests need not be, and therefore are not, approved by the [place] Food and Drug Administration. The tests are used for clinical purposes. Billing Codes Specimen Charges Stain Charges 90668 30010 1 1 9 1:11 PM CDT DERMATOPATHOLOGY LABORATORY Embedded Images 1:11 PM CDT DERMATOPATHOLOGY LABORATORY Pathology/Cytology TISSUE SPECIMEN FROM SKIN / Unknown 01/16/2019 01/18/2019 6:51 AM EMG TECHNICIAN Miscellaneous samples (specimen) TISSUE SPECIMEN FROM SKIN / Unknown 01/16/2019 01/18/2019 6:51 AM EMG TECHNICIAN Shana Downs DO LAB - PATHOLOGY/C YTOLOGY ORDERABLES DERMATOPATHOLOGY LABORATORY [facility] - Department of Dermatology [address] [place] [address], 5th Floor Lab B [address] [phone] documented in this encounter Visit Diagnoses Not on filedocumented in this encounter
--- OUTSIDE RECORDS SUMMARY | 2024-12-06 01:27 | XMS_ITS | Clinical Summary ---
Author Organization [facility] Address [address] [place] [address] Care Team Providers Care Snow Removal Supervisor Name Role Phone Malgorzata Jasso MD Unavailable [phone] Malgorzata Jasso MD Primary Care Provider Allergies Active Allergy Reactions Criticality Noted Date Comments Diazepam Swelling High 03/27/2017 Oral Diazepam after mastectomy, face, eyes, and lips swollen Medications multivitamin capsule Take 1 capsule by mouth daily Active biotin 1 mg capsule Take 1 tablet/capsu le by mouth daily Active Active Problems Problem Noted Date Diagnosed Date Malignant neoplasm of female breast 11/19/2020 Overview (11/19/2020): Added automatically from request for surgery [id number] Elevated CA 15-3 level 09/21/2020 Acquired absence of both breasts 01/02/2020 Encounter for screening for malignant neoplasm o f breast 10/03/2019 History of breast cancer 07/24/2018 Overview (07/24/2018): Added automatically from request for surgery [id number] Malignant neoplasm of upper- outer quadrant of right female breast 04/20/2017 Encounters Date Type Department Care Team Description 12/03/2024 Telephone [facility] Oncology [address] [facility] Floor [address] [place] [address] Tracy Lindsey, GERALDO 11/21/2024 Telephone [facility] Surgery [address] 6th [place] [address] [place] [address] Yuki Bryan 09/24/2024 Orders Only [facility] Physicians [facility] Oncology [address] [facility] [address] [place] [address] Veronica Suárez NP Malignant neoplasm of upper-outer quadrant of right breast in female, estrogen receptor positive (HCC) (Primary Dx); History of breast cancer; Elevated CA 15-3 level from Last 3 Months Immunizations Name Administration Dates Next Due Hep A, Adult 03/17/2010,09/04/2009 Surgical History Surgery Date Site/Laterality Comments HYSTERECTOMY Total Hysterectomy - (Added by TW Conv) NM ENLARGE BREAST Breast Surgery Enlargement Procedure - (Added by TW Conv) BREAST SURGERY 02/11/2017 - 03/12/2017 Bilateral double mastectomy Medical History Medical History Date Comments PONV (postoperative nausea and vomiting) Motion sickness Breast Cancer (CMS/HCC) 02/2017 bilatera l mastectomy History of transfusion 1981 post suha h Arthritis neck/back Miscarriage 1981 Anxiety Pneumonia Family History Medical History Relation Name Comments Liver cancer Mother Family history of liver cancer - (Added by TW Conv) Thyroid Mother Uterine cancer Mother Dementia Mother's Sister Relation Name Status Comments Daughter Alive Father unknown Half-Brother 1 unknown Alive Half-Brother 2 unknown Alive Half-Sister unknown Alive Mother Mother's Sister Son Alive Social History Tobacco Use Types Packs/Day Years Used Date Smoking Tobacco: Never Passive Smoke Exposure: Never Smokeless Tobacco: Never Tobacco Cessation:Counseling Given: Not Answered Alcohol Use Standard Drinks/Week Comments Yes 1 (1 standard drink = 0.6 oz pur e alcohol) 1-2 beers/month AUDIT-C Answer Date Recorded Frequency of Alcohol Consumption Monthly or less 10/02/2019 Average Number of Drinks 1 or 2 019 Frequency of Binge Drinking Monthly 09/14 Overall Financial Resource Strain (CARDIA) Answe r Date Recorded Difficulty of Paying Living Expenses Not hard at all 10/03/2019 Hunger Vital Sign Answer Date Recorded Worried About Running Out of Food in the Last Ye ar Never true 10/03/2019 Ran Out of Food in the Last Year Never true 10/03/2019 PRAPARE - Transportation Answer Date Re corded Lack of Transportation (Medical) No 10/03/2019 Lack of Transportation (Non-Medical) No 10/03/2019 Comments Unknown Sex and Gender Information Value Date Recorded Sex Assigned at Not on file Legal Sex Female 1:57 PM CDT Gender Identity Not on file Sexual Orientation Not on file 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 4, para 2. First term age 16. No hormone replacement therapy, fertility medications or oral contraceptives. Hysterectomy in 2004. Last Filed Vital Signs Vital Sign Reading Time Taken Comments Blood Pressure 125/85 05/24/2024 2:21 PM CDT Pulse 79 05/24/2024 2:21 PM CDT Temperature 36.6 ??C (97.9 ??F) 05/24/2024 2:21 PM CD T Respiratory Rate 18 05/24/2024 2:21 PM CDT Oxygen Saturation 99% 05/24/2024 2:21 PM CDT Inhaled Oxygen Concentration - - Weight 54.9 kg (121 lb) 07/08/2024 1:49 PM CDT Height 156 cm (5' 1.42 ) 07/08/2024 1:49 PM CDT Body Mass Index 22.55 07/08/2024 1:49 PM CDT Plan of Treatment Health Maintenance Due Date Last Done Comments Breast Cancer Screening-Mammogram 1963 Colon Cancer Screening-Colonoscopy 1963 Depression Screening 1963 Hepatitis C Screening 1963 DTaP/Tdap/Td Vaccine (1 - Tdap) 1974 Hepatitis B Screening 1981 Regular Well Visit/Exam 18-64 1981 Zoster Vaccine (1 of 2) 2013 Influenza Vaccine (#1) 2024 Pneumococcal vaccine <65 Aged Out No longer eligible based on patient's age to complete this topic Insurance AETNA [facility] CIGNA OPEN ACCESS AENA [facility] Care Teams Snow Removal Supervisor Relationship Specialty Start Date End Date Malgorzata Jasso MD [address] [place] [address] PCP - General Family Medicine 09/17/21 Malgorzata Jasso MD [address] [place] [address] Referring Physician Family Medicine 09/17/21
--- OUTSIDE RECORDS SUMMARY | 2024-12-06 01:27 | XMS_ITS | Encounter Summary ---
Author Organization [facility] Address [address] [place] [address] Phone Care Team Providers Care Sales Clerk Name Role Phone Walt Bernal MD Primary Care Provider [phone] Malgorzata Jasso MD Unavailable [phone] Malgorzata Jasso MD Primary Care Provider Encounter Details Date Type Department Care Team (Latest Contact Info) Description 06/15/2021 Orders Only [facility] Scanning, Provider Social History Tobacco Use Types Packs/Day Years Used Date Smoking Tobacco: Never Smokeless Tobacco: Never Alcohol Use Standard Drinks/Week Comments Yes 1 [...] 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 Not on file Not on fi le documented as of this encounter Plan of Treatment Not on file documented as of this encounter Procedures Procedure Name Priority Date/Time Associated Diagnosis Comments SCAN - RADIOLOGY/IMAGING 06/15/2021 documented in this encounter Results * SCAN - RADIOLOGY/IMAGING (06/15/2021) Anatomical Region Laterality Modality Other us Provider Scanning Edited Result - Final documented in this encounter Visit Diagnoses Not on filedocumented in this encounter Care Teams Sales Clerk Relationship Specialty Start Date End Date Walt Bernal MD [address] [place] [address] PCP - General 03/07/17 09/16/21 Malgorzata Jasso MD [address] [address] PCP - General Family Medicine 09/17/21 Malgorzata Jasso MD [address] [address] Referring Physician Family Medicine 09/17/21 documented as of this encounter
--- OUTSIDE RECORDS SUMMARY | 2024-12-06 01:27 | XMS_ITS ---
Author Organization [facility] Address [address] [place] [address] Care Team Providers Care Boiler Or Engine Operator Name Role Phone Malgorzata Jasso MD Unavailable [phone] Malgorzata Jasso MD Primary Care Provider Active Problems Problem Noted Date Diagnosed Date Malignant neoplasm of female breast 11/19/2020 Overview (11/19/2020): Added automatically from request for surgery [id number] Elevated CA 15-3 level 09/21/2020 Acquired absence of both breasts 01/02/2020 Encounter for screening for malignant neoplasm o f breast 10/03/2019 History of breast cancer 07/24/2018 Overview (07/24/2018): Added automatically from request for surgery [id number] Malignant neoplasm of upper- outer quadrant of right female breast 04/20/2017 Current Oncology Plans No current plan information found. Past Plans No past plan information found. Radiation Treatments * No radiation treatments are documented for this patient in [facility]. Treatments may have been administered in another system. Lifetime Dose Tracking * Chemical Lifetime Dose Automatic Entry Manual Entr y DLP 984 mGycm 984 mGycm 0 mGycm
--- OUTSIDE RECORDS SUMMARY | 2024-12-06 01:27 | XMS_ITS | Referral Summary ---
Author Organization [facility] Address [address] [place] [address] Care Team Providers Care Composition Worker Name Role Phone Malgorzata Jasso MD Unavailable [phone] Malgorzata Jasso MD Primary Care Provider Encounters Date Type Department Care Team Description 12/03/2024 Telephone [facility] Oncology [address] [place] [address] Tracy Lindsey, RMA 11/21/2024 Telephone [facility] Surgery [address] [facility] 6th [place] [address] [place] [address] Yuki Bryan 09/24/2024 Orders Only [facility] Physicians [facility] Oncology [address] [place] [address] Veronica Suárez, DEDRA Malignant neoplasm of upper-outer quadrant of right breast in female, estrogen receptor positive (HCC) (Primary Dx); History of breast cancer; Elevated CA 15-3 level from Last 3 Months Allergies Active Allergy Reactions Criticality Noted Date [...] (11/19/2020): Added automatically from request for surgery [id number] Elevated CA 15-3 level 09/21/2020 Acquired absence of both breasts 01/02/2020 Encounter for screening for malignant neoplasm o f breast 10/03/2019 History of breast cancer 07/24/2018 Overview (07/24/2018): Added automatically from request for surgery [id number] Malignant neoplasm of upper- outer quadrant of right female breast 04/20/2017 Immunizations Name Administration Dates Next Due Hep A, Adult 03/17/2010,09/04/2009 Social History Tobacco Use Types Packs/Day Years [...] 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 HMO/PPO Address: [address] [place] [address] [facility] Address: [facility] [id number] [place] [address] [facility] Care Teams Composition Worker Relationship Specialty Start Date End Date Malgorzata Jasso MD [address] [place] [address] PCP - General Family Medicine 09/17/21 Malgorzata Jasso MD [address] [place] [address] Referring Physician Family Medicine 09/17/21
--- OUTSIDE RECORDS SUMMARY | 2024-12-06 01:27 | XMS_ITS | Encounter Summary ---
Author Organization [facility] Address [address] [place] [address] Care Team Providers Care Care Nurse Rn Name Role Phone Malgorzata Jasso MD Unavailable Malgorzata Jasso MD Primary Care Provider Encounter Details Date Type Department Care Team (Late st Contact Info) Description 05/28/2024 Orders Only [facility] [address] [facility] Advanced Medicine 7th [place] [id number] Virgil, Deysi Avila MD PhD [address] [facility] [address] [place] [address] Malignant neoplasm of upper-outer quadrant of right breast in female, estrogen receptor positive (HCC) (Primary Dx) Social History Tobacco Use Types Packs/Day Years Used Date Smoking Tobacco: Never Passive Smoke Exposure: Never Smokeless Tobacco: Never Alcohol Use Standard [...] 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 Not on file Not on fi le documented as of this encounter Plan of Treatment Not on file documented as of this encounter Visit Diagnoses Diagnosis Malignant neoplasm of upper-outer quadrant of right breast in female, estrogen receptor positive (HCC)- Primary documented in this encounter Orders Appointment Requests Count Last Ordered Date Fi rst Ordered Date [facility] LAB APPOINTMENT 1 05/29/2024 documented in this encounter Care Teams Care Nurse Rn Relationship Specialty Start Date End Date Malgorzata Jasso MD [address] [place] [address] PCP - General Family Medicine 09/17/21 Malgorzata Jasso MD [address] [place] [address] Referring Physician Family Medicine 09/17/21 documented as of this encounter
--- OUTSIDE RECORDS SUMMARY | 2024-12-06 01:27 | XMS_ITS | Encounter Summary ---
Author Organization [facility] Address [address] [place] [address] Phone Care Team Providers Care Barge Captain Name Role Phone Malgorzata Jsaso MD Unavailable [phone] Malgorzata Jasso MD Primary Care Provider Encounter Details Date Type Department Care Team (Late st Contact Info) Description 12/03/[address] 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 Goldberg's office to schedule, she verbalized her understanding. ----- Message from Veronica Suárez NP sent at 12/03/2024 3:22 PM CENTRAL CONTROL ROOM OPERATOR ----- Regarding: RE: f/u ultrasound Yes, you are correct. Dr. Simpson's 07/08/2024 note says, the patient will follow up in 6 months at which time we will repeat an ultrasound. She should get back in with Dr. Simpson for imaging. TY! ----- Message ----- From: Tracy Lindsey RMA Sent: 12/03/2024 3:03 PM CENTRAL CONTROL ROOM OPERATOR To: Veronica Suárez NP Subject: f/u ultrasound Terese left me a message about scheduling her 6 month follow up ultrasound. Looks like we sent her to a surgeon - do you want to order the follow up or should they? RAL CONTROL ROOM OPERATOR RAL CONTROL ROOM OPERATOR documented in this encounter Plan of Treatment Not on file documented as of this encounter Visit Diagnoses Not on filedocumented in this encounter Care Teams Barge Captain Relationship Specialty Start Date End Date Malgorzata Jasso MD [address] [place] [address] PCP - General Family Medicine 09/17/21 Malgorzata Jasso MD [address] [place] [address] Referring Physician Family Medicine 09/17/21 documented as of this encounter
== END 2024-12-04 14:40 | disposition home or self-care (01) ==
PROVIDERS: Emergency Provider Nurse Practitioner Family; PCP Family Medicine
DX: S39.012A Strain of muscle, fascia and tendon of lower back, initial encounter (principal); X58.XXXA Exposure to other specified factors, initial encounter; Z85.3 Personal history of malignant neoplasm of breast; Z90.13 Acquired absence of bilateral breasts and nipples
CPT/HCPCS: 81003; 96372; 99213; G0463; J1885

== ENCOUNTER 2025-06-05 14:13 | Emergency (ER) | payer OTHER, SELFPAY ==
--- NOTE | 2025-06-05 14:16 | ED.SKABFB ---
HPI - Skin/Abscess/Foreign Bdy General Chief complaint: Skin/Abscess/Foreign Body Stated complaint: Rash Time Seen by Provider: 06/05/25 14:15 Source: patient Mode of arrival: ambulatory Limitations: no limitations History of Present Illness HPI narrative: Patient is a 60-year-old female who presents with rash. Patient was pulling weeds on Monday and developed a rash the next day. Patient has tried [id number] medication with no relief. Denies any shortness of breath or facial swelling. Related Data Home Medications ?Medication ?Instructions ?Recorded ?Confirmed ?Last Taken ?Type triamcinolone acetonide 0.1 % applic topical 06/05/25 Unknown History topical cream Allergies Allergy/AdvReac Type Severity Reaction Status Date / Time diazepam Allergy Unknown Hives / Verified 06/05/25 14:25 Red Face morphine AdvReac Mild NAUSEA/VOMI Verified 06/05/25 14:25 TING Review of Systems Review of Systems: All systems reviewed & are unremarkable except as noted in HPI and below Constitutional: Constitutional: Denies body ache(s), Denies chills, Denies fatigue, Denies fever(s), Denies headache(s), Denies malaise and Denies weakness Eyes: Eyes: Denies blurry vision, Denies irritation and Denies loss of vision ENT: Denies otalgia, Denies headache(s), Denies nasal discharge, Denies sinus pain and Denies sore throat Cardiovascular: Cardiovascular: Denies chest pain, Denies irregular heart rhythm and Denies dyspnea Respiratory: Respiratory: Denies dyspnea Gastrointestinal: Gastrointestinal: Denies abdominal pain, Denies melena, Denies hematochezia, Denies diarrhea, Denies nausea and Denies vomiting Musculoskeletal: Musculoskeletal: Denies back pain, Denies myalgias and Denies arthralgias Integumentary/Breasts: Skin/Breast: Reports pruritus and Reports rash Neurologic: Denies headache(s), Denies loss of vision and Denies weakness Psychiatric: Psychiatric: Reports no additional psychiatric complaints Endocrine: Endocrine: Denies fatigue PMFSH Past Medical History Medical History Breast CA Surgical History Surgical History S/P PATY-BSO (total abdominal hysterectomy and bilateral salpingo-oophorectomy) S/P breast reconstruction, bilateral History of mastectomy Family History Family History Mother Liver cancer Uterine cancer Thyroid disorder Other Acute myocardial infarction Social History Social History Social History: Smoking packs per day: 0 Smoking cigarettes per day: 0.0 Smoking status: Never smoker Second hand tobacco smoke exposure: No Alcohol intake: current Alcohol use details: Rarely Substance use: never Substance use type: does not use Living arrangements: with family Occupation/Education: occupation 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 There is no relevant family history pertinent to the presenting complaint. Exam Const: General: cooperative, healthy appearing, comfortable, no acute distress and well nourished Nutritional Appearance: well nourished Orientation/consciousness: patient oriented x3 Limitations: no limitations HENMT: Head: normal to inspection, normocephalic and atraumatic Ears: hearing grossly normal bilaterally and external ears normal Face/Nose/Sinus: Normal external nose present, normal facial exam and face symmetric Face and sinus: normal facial exam and face symmetric Mouth: Yes lip normal Eyes: General: appearance normal, both eyes and all related structures Alignment and Position: alignment normal and position normal Periorbital: periorbital findings normal Eyelids: eyelids normal Pupils: Equal, round and reactive pupils present EOM: EOMs intact bilaterally Neck: Neck: normal visual inspection, full ROM and supple Chest: Chest palpation & inspection: normal inspection of the chest Resp: Effort & Inspection: normal respiratory effort and able to speak in complete sentences Auscultation: clear to auscultation bilaterally Cardio: Rate: regular rate Rhythm: regular rhythm Heart sounds: S1 normal heart sound present and S2 normal heart sound present GI: Inspection: normal to inspection Skin: General skin exam: normal color and no rashes or lesions noted Rashes: rashes noted (bilateral arms, legs left neck) vesicles arrangement grouped, borders sharp and irregular, color and surface warm, waxy and with an erythematous base; nontender Neuro: General: patient oriented x3 and moves all extremities Cranial nerves: Yes Equal, round and reactive pupils present Speech: normal speech Gait exam (Neuro): Normal gait present Extrem: General: normal to inspection, full ROM and no edema Psych: Appearance: grossly normal and well kempt Mental Status: mental status grossly normal Speech and movement: Normal speech and movement present Affect: normal affect Attitude: cooperative Thought process: Normal thought process present Course Course Emergency Course: Patient is aware of diagnosis, understands and agrees to treatment plan. Anticipatory guidance given. Patient agrees to follow-up as directed and is aware of reasons to seek care at the emergency department. Portions of this record may have been created with voice recognition software Level of Care: Express Care Visit Vital Signs Vital signs: Vital Signs Temperature 36.8 C 06/05/25 14:20 Pulse Rate 67 06/05/25 14:20 Respiratory Rate 18 06/05/25 14:20 Blood Pressure 120/80 06/05/25 14:20 Pulse Oximetry 98 06/05/25 14:20 Oxygen Delivery Room Air 06/05/25 14:20 Temperature 36.8 C 06/05/25 14:20 Pulse Rate 67 06/05/25 14:20 Respiratory Rate 18 06/05/25 14:20 Blood Pressure 120/80 06/05/25 14:20 Pulse Oximetry 98 06/05/25 14:20 Oxygen Delivery Room Air 06/05/25 14:20 Reviewed MDM - Skin/Abscess/Foreign Bdy MDM Narrative Medical decision making narrative: Pt well hydrated appearing, in no respiratory distress, hemodynamically stable. Recommend supportive care. The patient is stable at time of discharge the clinical impression was discussed and the patient was given the opportunity to ask questions, which were addressed as completely as possible given the information available at present. Anticipatory guidance and return to care precautions were discussed and the importance of primary care follow-up was stressed and encouraged. The patient voiced understanding of the plan, indications to return, and the need for follow-up. Exam findings show no acute concerns or changes Patient is appropriate for outpatient treatment and follow-up. Differential Diagnosis Differential diagnosis: Likely abscess of skin or subcutaneous tissue, allergic reaction to drug, cellulitis, insect bites and contact dermatitis Medical Records Attestation: I reviewed the patient's medical records. Discharge Plan Discharge Clinical Impression: Poison hannah dermatitis Patient Disposition: Home Condition: Stable Instructions: Poison Hannah (ED) Additional Instructions: Take steroids in the morning with food Prevention is always better than treatment. Learn to identify poison hannah, oak, and sumac and avoid it. Wear long sleeves, long pants, shoes, and socks. If you touched the plant, try to keep your hands away from your eyes, mouth, and face. Wash the skin thoroughly with soap and cool water as soon as possible. Scrub under the fingernails with a brush to prevent spreading of the resin to other parts of the body by touching or scratching. Remember to wash any clothing with soap and hot water as the resin can persist for many months and cause further dermatitis. You should NOT use antihistamine creams or lotions, anesthetic creams containing benzocaine, or antibiotic creams containing neomycin or bacitracin to the skin. These creams or ointments could make the rash worse. For some people, adding oatmeal to a bath, applying cool wet compresses, and applying calamine lotion may help to relieve itching. Once the blisters begin weeping fluid, astringents containing aluminum acetate (Burow's solution) and Domeboro may help to relieve the rash. IF symptoms get worse to follow up with your primary care provider or seek ER visit if you developing difficulty breathing, weakness, dizziness. Patient Language: Bengali Prescriptions: New prednisone 10 mg tablet See Rx Instructions .ROUTE .COMPLEX Qty: 35 0RF Rx Instructions: 40 mg daily for 5 days, 20 mg daily for 5 days, 10 mg daily for 5 days No Action triamcinolone acetonide 0.1 % cream TOPICAL Follow-up/Referrals: Malgorzata Jasso MD [Primary Care Provider] - 3 Days Time of Disposition: 14:50
[2025-06-05 14:20] VITALS: BP 120/80; PULSE 67; RESP 18; TEMP 36.8; O2SAT 98
== END 2025-06-05 14:55 | disposition home or self-care (01) ==
PROVIDERS: Emergency Provider Nurse Practitioner Family; PCP Family Medicine
DX: L23.7 Allergic contact dermatitis due to plants, except food (principal); Z85.3 Personal history of malignant neoplasm of breast; Z90.13 Acquired absence of bilateral breasts and nipples
CPT/HCPCS: 99213; G0463